=== PATIENT | male | born 1945 | race Caucasian/White ===

== ENCOUNTER 2018-03-26 13:07 | Inpatient (IN) | payer OTHER ==
[2018-03-26 13:34] LABS: ADD MAN DIFF? NO
[2018-03-26 13:36] LABS: BASO # 0.1 x10^3/uL (0.0-0.2); BASO % 1 % (0-3); EOS % 0 % (0-3); HEMATOCRIT 38.7 % (39.0-53.0); HEMOGLOBIN 13.4 g/dL (13.0-17.5); LYMPH # 1.2 x10^3/uL (1.0-4.8); LYMPH % 11 % (24-48); MEAN CORPUSCULAR HEMOGLOBIN 32 pg (25-35); MEAN CORPUSCULAR HGB CONC 35 g/dL (31-37); MEAN CORPUSCULAR VOLUME 91 fL (79-100); MONO # 0.9 x10^3/uL (0.0-1.1); MONO % 8 % (0-9); NEUT # 8.7 x10^3uL (1.8-7.7); NEUT % 80 % (31-73); PLATELET COUNT 171 x10^3/uL (140-400); RED BLOOD COUNT 4.26 x10^6/uL (4.30-5.70); RED CELL DISTRIBUTION WIDTH 13.7 % (11.5-14.5); WHITE BLOOD COUNT 10.9 x10^3/uL (4.0-11.0)
[2018-03-26 13:47] LABS: INR 1.2 (0.8-1.1); PROTHROMBIN TIME PATIENT 14.9 SEC (11.7-14.0)
[2018-03-26 14:00] LABS: BILIRUBIN,URINE MODERATE (NEG); CLARITY,URINE CLEAR; COLOR,URINE AMBER; GLUCOSE,URINE NEGATIVE (NEG); NITRITE,URINE NEGATIVE (NEG); PH,URINE 5.5; PROTEIN,URINE 30 mg/dL (NEG-TRACE)
[2018-03-26 14:07] LABS: ALBUMIN 3.1 g/dL (3.4-5.0); ALBUMIN/GLOBULIN RATIO 0.7 (1.0-1.7); ALK PHOS 119 U/L (46-116); ALT (SGPT) 26 U/L (16-63); ANION GAP 12 (6-14); AST (SGOT) 21 U/L (15-37); BLOOD UREA NITROGEN 25 mg/dL (8-26); BUN/CREATININE RATIO 23 (6-20); CALCIUM 9.1 mg/dL (8.5-10.1); CARBON DIOXIDE 26 mmol/L (21-32); CHLORIDE 106 mmol/L (98-107); CREATININE 1.1 mg/dL (0.7-1.3); GFR 65.8; GLUCOSE 99 mg/dL (70-99); MAGNESIUM 2.4 mg/dL (1.8-2.4); POTASSIUM 3.8 mmol/L (3.5-5.1); SODIUM 144 mmol/L (136-145); TOTAL BILIRUBIN 0.8 mg/dL (0.2-1.0); TOTAL PROTEIN 7.3 g/dL (6.4-8.2)
[2018-03-26 14:07] LABS: THYROID STIM HORMONE (TSH) 0.712 uIU/mL (0.358-3.74)
[2018-03-26 14:11] LABS: CKMB INDEX 1.5 % (0-4); CKMB MASS 4.2 ng/mL (0.0-3.6); CREATINE KINASE 287 U/L (39-308)
[2018-03-26 14:16] LABS: BACTERIA,URINE 0 /HPF (0-FEW); HYALINE CASTS, URINE MANY /HPF; RBC,URINE 20-40 /HPF (0-2); WBC,URINE 0 /HPF (0-4)
[2018-03-26] MEDS ORDERED: fentaNYL PF VIAL 100 MCG/2 ML VIAL IV (15:00)
[2018-03-26] MEDS ORDERED: ACETAMINOPHEN 325 MG TABLET. PO (15:00)
[2018-03-26] MEDS ORDERED: ONDANSETRON PF 4 MG/2 ML VIAL. IV (15:00)
[2018-03-26] MEDS: PIPERACILLIN/TAZOBACTAM 4.5 GM in IV NORMAL SALINE 100ML 100 ML IV (16:30)
[2018-03-26] MEDS: IV NORMAL SALINE 1000ML BAG 1,000 ML IV (21:12)
[2018-03-26] MEDS: ENOXAPARIN 40 MG/0.4 ML SYRINGE. SQ (21:13)
[2018-03-26 21:41] LABS: TROPONINI 0.028 ng/mL (0.000-0.055)
[2018-03-27] MEDS: PIPERACILLIN/TAZOBACTAM 3.375 GM in IV NORMAL SALINE 50ML 50 ML IV ×4 (00:24→17:30)
[2018-03-27 05:05] LABS: ADD MAN DIFF? NO
[2018-03-27 05:20] LABS: BASO % 0 % (0-3); EOS % 0 % (0-3); HEMATOCRIT 35.4 % (39.0-53.0); HEMOGLOBIN 11.8 g/dL (13.0-17.5); LYMPH # 1.5 x10^3/uL (1.0-4.8); LYMPH % 15 % (24-48); MEAN CORPUSCULAR HEMOGLOBIN 31 pg (25-35); MEAN CORPUSCULAR HGB CONC 34 g/dL (31-37); MEAN CORPUSCULAR VOLUME 92 fL (79-100); MONO # 1.1 x10^3/uL (0.0-1.1); MONO % 11 % (0-9); NEUT # 7.3 x10^3uL (1.8-7.7); NEUT % 73 % (31-73); PLATELET COUNT 168 x10^3/uL (140-400); RED BLOOD COUNT 3.84 x10^6/uL (4.30-5.70); RED CELL DISTRIBUTION WIDTH 14.1 % (11.5-14.5); WHITE BLOOD COUNT 9.9 x10^3/uL (4.0-11.0)
[2018-03-27 05:38] LABS: ALBUMIN 2.7 g/dL (3.4-5.0); ALBUMIN/GLOBULIN RATIO 0.6 (1.0-1.7); ALK PHOS 101 U/L (46-116); ALT (SGPT) 21 U/L (16-63); ANION GAP 7 (6-14); AST (SGOT) 18 U/L (15-37); BLOOD UREA NITROGEN 28 mg/dL (8-26); BUN/CREATININE RATIO 23 (6-20); CALCIUM 8.8 mg/dL (8.5-10.1); CARBON DIOXIDE 29 mmol/L (21-32); CHLORIDE 107 mmol/L (98-107); CREATININE 1.2 mg/dL (0.7-1.3); GFR 59.5; GLUCOSE 54 mg/dL (70-99); POTASSIUM 3.8 mmol/L (3.5-5.1); SODIUM 143 mmol/L (136-145); TOTAL BILIRUBIN 0.8 mg/dL (0.2-1.0)
[2018-03-27] MEDS: PNEUMOC CONJ VACC 23-VALENT 0.5 ML VIAL. VAX IM (08:03)
[2018-03-27] MEDS ORDERED: ONDANSETRON PF 4 MG/2 ML VIAL. IV (08:15)
[2018-03-27] MEDS ORDERED: PNEUMOCOCCAL VAX SCREEN BY RX. MC (09:00)
[2018-03-27 09:17] LABS: SEDIMENTATION RATE 43 (0-15)
[2018-03-27] MEDS: MEMANTINE 10 MG TABLET. PO (10:32)
[2018-03-27] MEDS: IBUPROFEN 400 MG TABLET. PO ×2 (10:32→14:00)
[2018-03-27] MEDS: LINEZOLID 600 MG TABLET PO (10:32)
[2018-03-27] MEDS: ASPIRIN ENTERIC COATED 81 MG TABLET.DR. PO (10:32)
[2018-03-27] MEDS: POTASSIUM CHLORIDE 10 MEQ TABLET.ER. PO (10:32)
[2018-03-27] MEDS: MULTIVITAMIN with MINERAL TABLET. PO (10:32)
[2018-03-27] MEDS: LISINOPRIL 20 MG TABLET PO (10:33)
[2018-03-27] MEDS: ENOXAPARIN 40 MG/0.4 ML SYRINGE. SQ (17:30)
[2018-03-28] MEDS: LACTOBACILLUS RHAMNOSUS GG 1 CAPSULE. PO ×3 (00:01→19:49)
[2018-03-28] MEDS: IBUPROFEN 400 MG TABLET. PO ×4 (00:01→19:49)
[2018-03-28] MEDS: PIPERACILLIN/TAZOBACTAM 3.375 GM in IV NORMAL SALINE 50ML 50 ML IV ×4 (00:01→19:49)
[2018-03-28] MEDS: LINEZOLID 600 MG TABLET PO ×3 (00:01→19:49)
[2018-03-28] MEDS: MEMANTINE 10 MG TABLET. PO (09:32)
[2018-03-28] MEDS: POTASSIUM CHLORIDE 10 MEQ TABLET.ER. PO (09:32)
[2018-03-28] MEDS: MULTIVITAMIN with MINERAL TABLET. PO (09:32)
[2018-03-28] MEDS: ASPIRIN ENTERIC COATED 81 MG TABLET.DR. PO (09:32)
[2018-03-28] MEDS: LISINOPRIL 20 MG TABLET PO (09:33)
[2018-03-28] MEDS: ENOXAPARIN 40 MG/0.4 ML SYRINGE. SQ (19:50)
[2018-03-29] MEDS: PIPERACILLIN/TAZOBACTAM 3.375 GM in IV NORMAL SALINE 50ML 50 ML IV ×4 (00:40→19:15)
[2018-03-29] MEDS: IBUPROFEN 400 MG TABLET. PO ×4 (09:33→21:08)
[2018-03-29] MEDS: MULTIVITAMIN with MINERAL TABLET. PO (09:33)
[2018-03-29] MEDS: POTASSIUM CHLORIDE 10 MEQ TABLET.ER. PO (09:33)
[2018-03-29] MEDS: MEMANTINE 10 MG TABLET. PO (09:34)
[2018-03-29] MEDS: ASPIRIN ENTERIC COATED 81 MG TABLET.DR. PO (09:34)
[2018-03-29] MEDS: LINEZOLID 600 MG TABLET PO ×2 (09:34→21:08)
[2018-03-29] MEDS: LISINOPRIL 20 MG TABLET PO (09:34)
[2018-03-29] MEDS: LACTOBACILLUS RHAMNOSUS GG 1 CAPSULE. PO ×2 (09:34→21:08)
[2018-03-29] MEDS: ENOXAPARIN 40 MG/0.4 ML SYRINGE. SQ (19:16)
[2018-03-30] MEDS: PIPERACILLIN/TAZOBACTAM 3.375 GM in IV NORMAL SALINE 50ML 50 ML IV ×4 (00:55→18:19)
[2018-03-30] MEDS: MULTIVITAMIN with MINERAL TABLET. PO (08:52)
[2018-03-30] MEDS: ASPIRIN ENTERIC COATED 81 MG TABLET.DR. PO (08:52)
[2018-03-30] MEDS: LINEZOLID 600 MG TABLET PO ×2 (08:52→21:02)
[2018-03-30] MEDS: MEMANTINE 10 MG TABLET. PO (08:52)
[2018-03-30] MEDS: POTASSIUM CHLORIDE 10 MEQ TABLET.ER. PO (08:52)
[2018-03-30] MEDS: LACTOBACILLUS RHAMNOSUS GG 1 CAPSULE. PO ×2 (08:52→21:02)
[2018-03-30] MEDS: IBUPROFEN 400 MG TABLET. PO ×3 (08:54→21:02)
[2018-03-30] MEDS: LISINOPRIL 20 MG TABLET PO (08:54)
[2018-03-30] MEDS: ENOXAPARIN 40 MG/0.4 ML SYRINGE. SQ (18:19)
[2018-03-31] MEDS: PIPERACILLIN/TAZOBACTAM 3.375 GM in IV NORMAL SALINE 50ML 50 ML IV ×4 (02:22→18:27)
[2018-03-31] MEDS: LISINOPRIL 20 MG TABLET PO (08:32)
[2018-03-31] MEDS: LINEZOLID 600 MG TABLET PO ×2 (08:32→20:34)
[2018-03-31] MEDS: MEMANTINE 10 MG TABLET. PO (08:32)
[2018-03-31] MEDS: ASPIRIN ENTERIC COATED 81 MG TABLET.DR. PO (08:32)
[2018-03-31] MEDS: LACTOBACILLUS RHAMNOSUS GG 1 CAPSULE. PO ×2 (08:32→20:34)
[2018-03-31] MEDS: MULTIVITAMIN with MINERAL TABLET. PO (08:32)
[2018-03-31] MEDS: IBUPROFEN 400 MG TABLET. PO ×3 (08:32→20:34)
[2018-03-31] MEDS: POTASSIUM CHLORIDE 10 MEQ TABLET.ER. PO (08:33)
[2018-03-31 11:49] LABS: LACTIC ACID 1.5 mmol/L (0.4-2.0)
[2018-03-31] MEDS: ENOXAPARIN 40 MG/0.4 ML SYRINGE. SQ (20:34)
[2018-04-01] MEDS: PIPERACILLIN/TAZOBACTAM 3.375 GM in IV NORMAL SALINE 50ML 50 ML IV ×2 (00:15→05:40)
[2018-04-01 04:45] LABS: ADD MAN DIFF? NO
[2018-04-01 04:54] LABS: BASO % 1 % (0-3); EOS # 0.3 x10^3/uL (0.0-0.7); EOS % 4 % (0-3); HEMATOCRIT 32.1 % (39.0-53.0); LYMPH # 1.5 x10^3/uL (1.0-4.8); LYMPH % 21 % (24-48); MEAN CORPUSCULAR HEMOGLOBIN 31 pg (25-35); MEAN CORPUSCULAR HGB CONC 34 g/dL (31-37); MEAN CORPUSCULAR VOLUME 90 fL (79-100); MONO # 0.5 x10^3/uL (0.0-1.1); MONO % 7 % (0-9); NEUT # 4.9 x10^3uL (1.8-7.7); NEUT % 68 % (31-73); PLATELET COUNT 195 x10^3/uL (140-400); RED BLOOD COUNT 3.56 x10^6/uL (4.30-5.70); RED CELL DISTRIBUTION WIDTH 13.7 % (11.5-14.5); WHITE BLOOD COUNT 7.3 x10^3/uL (4.0-11.0)
[2018-04-01 05:23] LABS: ALBUMIN/GLOBULIN RATIO 0.5 (1.0-1.7); ALK PHOS 63 U/L (46-116); ALT (SGPT) 28 U/L (16-63); ANION GAP 7 (6-14); AST (SGOT) 26 U/L (15-37); BLOOD UREA NITROGEN 10 mg/dL (8-26); BUN/CREATININE RATIO 13 (6-20); CALCIUM 8.5 mg/dL (8.5-10.1); CARBON DIOXIDE 28 mmol/L (21-32); CHLORIDE 109 mmol/L (98-107); CREATININE 0.8 mg/dL (0.7-1.3); GLUCOSE 93 mg/dL (70-99); POTASSIUM 3.1 mmol/L (3.5-5.1); SODIUM 144 mmol/L (136-145); TOTAL BILIRUBIN 0.3 mg/dL (0.2-1.0); TOTAL PROTEIN 6.4 g/dL (6.4-8.2)
[2018-04-01] MEDS: LACTOBACILLUS RHAMNOSUS GG 1 CAPSULE. PO (08:19)
[2018-04-01] MEDS: ASPIRIN ENTERIC COATED 81 MG TABLET.DR. PO (08:19)
[2018-04-01] MEDS: LINEZOLID 600 MG TABLET PO (08:19)
[2018-04-01] MEDS: LISINOPRIL 20 MG TABLET PO (08:19)
[2018-04-01] MEDS: MULTIVITAMIN with MINERAL TABLET. PO (08:20)
[2018-04-01] MEDS: POTASSIUM CHLORIDE 10 MEQ TABLET.ER. PO (08:20)
[2018-04-01] MEDS: MEMANTINE 10 MG TABLET. PO (08:20)
[2018-04-01] MEDS: IBUPROFEN 400 MG TABLET. PO ×2 (08:20→12:25)
[2018-04-01] MEDS ORDERED: DOXYCYCLINE HYCLATE 100 MG TABLET PO (21:00)
[2018-04-01] MEDS ORDERED: AMOXICILLIN/K CLAV 875/125MG TABLET. PO (21:00)
== END 2018-04-01 15:55 | disposition home health service (06) | DRG 871 ==
LOC: 6 SOUTH 18:40 → ER 13:07 → 6 SOUTH 14:51
DX: A41.9 Sepsis, unspecified organism (principal); G92 Toxic encephalopathy; L03.116 Cellulitis of left lower limb; N39.0 Urinary tract infection, site not specified; E16.2 Hypoglycemia, unspecified; F03.90 Unspecified dementia, unspecified severity, without behavioral disturbance, psychotic disturbance, mood disturbance, and anxiety; J44.9 Chronic obstructive pulmonary disease, unspecified; N40.0 Benign prostatic hyperplasia without lower urinary tract symptoms; R09.02 Hypoxemia; R62.7 Adult failure to thrive; M19.90 Unspecified osteoarthritis, unspecified site; Z87.891 Personal history of nicotine dependence; Z79.899 Other long term (current) drug therapy; Z88.8 Allergy status to other drugs, medicaments and biological substances; Z86.73 Personal history of transient ischemic attack (TIA), and cerebral infarction without residual deficits; Z88.6 Allergy status to analgesic agent; Z88.1 Allergy status to other antibiotic agents
CPT/HCPCS: 36415; 70450; 71045; 73610; 73630; 73700; 80053; 81001; 82553; 83605; 83735; 84443; 84484; 84550; 85025; 85610; 85651; 87040; 87205; 90732; 93005; 93925; 96365; 97116-GP; 97161-GP; 97166-GO; 97535-GO; 99285; 99285-25; J1650; J2543; J7030